=== PATIENT | female | born 1985 | race Caucasian/White ===

== ENCOUNTER 2020-07-15 01:13 | Observation (INO) | payer OTHER ==
[~2020-07-15] VITALS: Ht 175.2 cm; Wt 113.1 kg
[2020-07-15] VITALS (11 sets, daily range): BP systolic 98–127; BP diastolic 46–95
[2020-07-15 02:17] LABS: BASO # 0.1 10*3/uL (0.0-0.1); BASO % 0.4 % (0.0-1.0); EOS # 0.3 10*3/uL (0.0-0.4); HEMATOCRIT 45.1 % (37.0-47.0); LYMPH # 2.6 10*3/uL (1.3-4.4); LYMPH % 19.2 % (27.0-41.0); MEAN CORPUSCULAR HGB 30.4 pg (27.0-31.0); MEAN CORPUSCULAR HGB CONC 34.1 g/dl (33.0-37.0); MEAN PLATELET VOLUME 8.9 fl (9.6-12.3); MONO % 7.2 % (3.0-9.0); NEUT # 9.5 10*3/uL (2.3-7.9); NEUT % 70.2 % (47.0-73.0); PLATELET COUNT AUTOMATED 357 10*3/uL (130-400); RED BLOOD COUNT 5.07 10*6/uL (4.10-5.10); RED CELL DISTRI WIDTH 13.1 % (0-14.5); WHITE BLOOD COUNT 13.5 10*3/uL (4.8-10.8)
[2020-07-15 02:28] LABS: ACT PARTIAL THROMBO TIME 24.9 SECONDS (20.0-32.1)
[2020-07-15 02:29] LABS: BUN 12 mg/dl (7-24); CHLORIDE 106 mmol/L (98-107); CREATININE 0.66 mg/dL (0.55-1.02); POTASSIUM 3.4 mmol/L (3.5-5.1); SODIUM 140 mmol/L (136-145)
--- NOTE | 2020-07-15 05:45 | NUR ---
PT RESTING IN BED EYES CLOSED, NO DISTRESS NOTED, CALL LIGHT WITHIN REACH, RN WILL CONTINUE TO MONITOR
--- NOTE | 2020-07-15 06:37 | NUR ---
PT RESTING IN BED WITH EYES CLOSED, RESP EASY NONLABORED, EASILY AROUSED, NO DISTRESS NOTED, RN WILL CONTINUE TO MONITOR
--- NOTE | 2020-07-15 07:00 | NUR ---
NURSE REPORT RECEIVED FROM NURSE LUCIA.
--- NOTE | 2020-07-15 07:23 | NUR ---
PT IS SLEEPING IN BED. VSS. NO SIGNS OF ACUTE DISTRESS NOTED AT THIS TIME. WILL CONTINUE TO MONITOR.
--- NOTE | 2020-07-15 09:03 | NUR ---
PT DEDICATED TRUCK DRIVER HEIDI AND REQUESTING AN UPDATE. THIS NURSE GICES HER INFO THAT WE ARE WAITING ON SURGERY TO COME GET HER. PT STATES SHE COULD USE SOMETHING FOR PAIN. DR. MORRIS MADE AWARE. ------ SINDY BAILEY RN.
--- NOTE | 2020-07-15 09:49 | NUR ---
PT STILL COMPLAINING OF PAIN. DR. MORRIS MADE AWARE.
--- NOTE | 2020-07-15 09:59 | NUR ---
PT DISCHARGED TO SURGERYS CARE AT THIS TIME.
--- NOTE | 2020-07-15 12:45 | NUR ---
MSTime: 1245 A 34 year old EMALE admitted to under services of DR. LEO MEJIA,LEATHA. Pt. arrived via bed from SURGERY. Chief complaint: ANAL LACERATIONS. STEFANIE WADE
[2020-07-15] MEDS ORDERED: SYNTHROID25 MCG PO (13:23)
[2020-07-15] MEDS ORDERED: ESCITALOPRAM OX20 MG PO (13:24)
--- NOTE | 2020-07-15 13:29 | NUR ---
PT COMPLAINS OF PAIN IN BUTTOCKS RATED AT AN 8. PRN MORPHINE ADMINISTERED AT THIS TIME. WILL MONITOR FOR EFFECTIVENESS.
--- NOTE | 2020-07-15 14:00 | NUR ---
SCRATCHES NOTED TO PATIENT'S BUTTOCK. PT REFUSES PICTURES AND MEASUREMENTS AT THIS TIME. SURGICAL DRESSINGS INTACT.
--- NOTE | 2020-07-15 14:29 | NUR ---
PT STATES RELIEF OF PAIN FROM PRN MORPHINE.
--- NOTE | 2020-07-15 16:20 | NUR ---
PT COMPLAINS OF PAIN IN HER BUTTOCKS RATE AT A 7. PRN NORCO ADMINISTERED AT THIS TIME. WILL MONITOR FOR EFFECTIVENESS.
--- NOTE | 2020-07-15 17:20 | NUR ---
PT STATES SHE IS STILL HAVING PAIN RATED AT A 7. PRN NORCO WAS NOT EFFECTIVE.
--- NOTE | 2020-07-15 20:26 | NUR ---
PATIENT MEDICATED WITH NORCO FOR COMPLAINTS OF RECTAL PAIN. WILL MONITOR FOR EFFECTIVENESS. CALL LIGHT IN REACH.
--- NOTE | 2020-07-15 21:15 | NUR ---
NORCO SLIGHTLY EFFECTIVE. ASKING WHEN MORPHINE IS DUE AGAIN.
--- NOTE | 2020-07-15 22:17 | NUR ---
PATIENT MEDICATED WITH MORPHINE AT THIS TIME. WILL MONITOR FOR EFFECTIVENESS.
--- NOTE | 2020-07-15 23:00 | NUR ---
MORPHINE EFFECTIVE. PATIENT IN BED WITH EYES CLOSED. NO SIGNS OR SYMPTOMS OF DISTRESS NOTED. WILL CONTINUE TO MONITOR. CALL LIGHT IN REACH.
[2020-07-16] VITALS: BP 120/74
--- NOTE | 2020-07-16 03:34 | NUR ---
PATIENT MEDICATED WITH MORPHINE FOR COMPLAINTS OF RECTAL PAIN. WILL MONITOR FOR EFFECTIVENESS.
--- NOTE | 2020-07-16 04:22 | NUR ---
MORPHINE EFFECTIVE AT THIS TIME.
[2020-07-16 08:00] VITALS: BP 149/71
--- NOTE | 2020-07-16 08:20 | NUR ---
PT COMPLAINS OF RECTAL PAIN RATED AT A 9. PRN MORPHINE ADMINISTERED AT THIS TIME. WILL MONITOR FOR EFFECTIVENESS.
--- NOTE | 2020-07-16 09:20 | NUR ---
PRN MORPHINE EFFECTIVE. PT STATES RELIEF FROM PAIN.
--- NOTE | 2020-07-16 09:30 | NUR ---
Pump Rebuilder in to talk to patient. Patient states lives at home with her parents and children. There are 0 steps in the home. Physician: Dr. Joe Perla Pharmacy: [facility] Home health services: would like a [facility] nurse Patient's level of ADLs: INDEPENDENT Patient has working utilities: yes DME: none Follow-up physician's appointment after d/c: she prefers to make her own follow up appt upon discharge Does patient want to access PORTAL?: no Discharge plan discussed with patient. She lives at home with her family. She states she is independent in her ADLs and ambulation. Discussed home health care services and she is agreeable. When provided with a list of agencies she chose [facility] as she lives in [place], [place] Dr. Pat notified. When medically stable she will be discharged to home with [facility]. She states her mother will provide transportation on discharge. RAFIQ SUERO
--- NOTE | 2020-07-16 10:30 | NUR ---
PT RATES RECTAL PAIN AT AN 8. PRN NORCO ADMININSTERED AT THIS TIME. WILL MONITOR FOR EFFECTIVENESS.
--- NOTE | 2020-07-16 11:32 | NUR ---
Faxed home health order to [facility]
[2020-07-16 12:00] VITALS: BP 121/73
--- NOTE | 2020-07-16 14:02 | NUR ---
Received call from Nohemi at [facility]. They are able to accept patient and can see on .
[2020-07-16 16:00] VITALS: BP 114/66
--- NOTE | 2020-07-16 18:51 | NUR ---
PT COMPLAINS OF RECTAL PAIN RATED AT AN 8. PRN MORPHINE ADMINISTERED, WILL TELL NEXT NURSE IN REPORT TO CHECK ON EFFECTIVENESS.
[2020-07-16 20:00] VITALS: BP 117/66
--- NOTE | 2020-07-16 22:34 | NUR ---
IV MORPHINE GIVEN FOR C/O RECTAL PAIN 07/02. WILL MONITOR. CALL LIGHT IN REACH.
--- NOTE | 2020-07-16 23:30 | NUR ---
EARLIER MORPHINE HELPED SOME, BUT SOME PAIN REMAINS. PT REQUESTING NORCO. NORCO TO BE GIVEN PER ORDER. WILL MONITOR.
--- NOTE | 2020-07-16 23:43 | NUR ---
PT C/O RECTAL PAIN 07/02. MEDICATED W/NORCO PO. WILL MONITOR FOR EFFECTIVENESS.
[2020-07-17] VITALS: BP 116/78
--- NOTE | 2020-07-17 00:30 | NUR ---
EARLIER MEDICATION APPEARS EFFECTIVE. PT ASLEEP IN BED. WILL MONITOR CALL LIGHT IN REACH.
--- NOTE | 2020-07-17 03:44 | NUR ---
PT ASLEEP IN BED. NO S/S OF DISTRESS NOTED. WILL MONITOR. CALL LIGHT IN REACH.
--- NOTE | 2020-07-17 04:46 | NUR ---
IV MORPHINE ADMINISTERED PER PRN ORDER FOR C/O RECTAL PAIN RATED 7/10. WILL MONITOR EFFECTIVENESS. CALL LIGHT IN REACH.
--- NOTE | 2020-07-17 06:32 | NUR ---
PO NORCO GIVEN FOR C/O RECTAL PAIN 07/02. WILL MONITOR EFFECTIVENESS. CALL LIGHT IN REACH.
[2020-07-17 08:00] VITALS: BP 122/74
--- NOTE | 2020-07-17 09:23 | NUR ---
pt states pain buttocks 8/10, morphine given. will monitor for effectiveness
[2020-07-17] MEDS ORDERED: SEPTDS PO (09:38)
[2020-07-17] MEDS ORDERED: PROCTOFOAM15 GM R (09:38)
[2020-07-17] MEDS ORDERED: HYDROCODONE-AC1 EAC1 PO (09:38)
[2020-07-17] MEDS ORDERED: DOK COLACE100 MG PO (09:38)
--- NOTE | 2020-07-17 10:00 | NUR ---
MORPHINE EFFECTIVE FOR PAIN
--- NOTE | 2020-07-17 10:28 | NUR ---
PT REFUSE DISCHARGE PHOTOS OF BUTTOCKS AREA. PT HAD SURGICAL PROCEDURE INTERNAL WITH SUTURES THAT WILL DISOLVE. PT STATES SCRATCHES TO OUTSIDE AREA ON BUTTOCKS CAN BE MANAGED AT HOME AND WILL FOLLOW UP WITH DR. BAILEY DIRECTED. DECLINE NEED FOR WOUND CARE TO OUTSIDE BUTTOCKS AREA AT THIS TIME. WILL USE SITZ BATH INSTRUCTED
--- NOTE | 2020-07-17 10:29 | NUR ---
Discharge instructions reviewed with patient. Patient receptive and verbalizes understanding. Follow-up care UNDERSTOOD. Written instructions given to patient. GIVEN NORCO RX, UNDERSTANDS RX TO BE PICKED UP AT PHARMACY. UNDERSTANDS SITZ BATH NO QUESTIONS AT THIS TIME. HUA HOOVER
--- NOTE | 2020-07-17 10:49 | NUR ---
PT COMPLAIN OF PAIN 7/10, NORCO GIVEN. RX FOR NORCO GIVEN ON DISCHARGE
--- NOTE | 2020-07-17 11:19 | NUR ---
Faxed discharge instructions and summary to [facility]
== END 2020-07-17 10:29 | disposition home or self-care (01) ==
LOC: ED 01:13 → 5E 11:28
PROVIDERS: Emergency Medicine Emergency Medical Services; ADMIT Surgery; ATTEND Surgery
DX: S36.60XA Unspecified injury of rectum, initial encounter (principal); X58.XXXA Exposure to other specified factors, initial encounter; Y92.89 Other specified places as the place of occurrence of the external cause; Y99.8 Other external cause status; Y93.89 Activity, other specified